=== PATIENT | female | born 1970 | race American Indian/Alaskan Native ===

== ENCOUNTER 2022-04-21 08:15 | Day surgery (SDC) | payer OTHER ==
[2022-04-21] MEDS ORDERED: BUPIVACAINE/PF (0.5%) 5 MG/1 ML 30 ML VIAL INFILTRATI ONE ×2 (09:24→10:05)
[2022-04-21] MEDS ORDERED: LIDOCAINE (1%) 10 MG/1 ML VIAL 20 ML MDV ONE (09:24)
[2022-04-21] MEDS ORDERED: SODIUM CHLORIDE 0.9% IRR 1,500 ML BOTTLE IR ONE (10:05)
[2022-04-21] MEDS ORDERED: LIDOCAINE (1%) 10 MG/1 ML VIAL 20 ML MDV INFILTRATI ONE (10:05)
--- NOTE | 2022-04-21 11:05 | Procedure Note ---
Date of procedure: 04/21/22 Pre-op diagnosis: chronically infected umbilical wound Post-op diagnosis: same Procedure: debridement of umbilical wound Findings: Patient identified in preop area, taken back to the minor procedure room and placed on stretcher in supine position. Umbilical dressing removed and area prepped with betadine. Drape applied. Time out performed. 0.5 cm wound present at the inferior aspect of the umbilicus with purulent drainage. Local anesthetic infiltrated into the skin and subcutaneous tissue. The wound was probed with a hemostat. The wound probed deep approximately 4 cm and towards the 11 oclock and 5 oclock position. The skin was incised over the stat in both directions using an 11 blade in order to unroof abscess cavity. Chronic abscess cavity visualized measuring approximately 3cm and extended to the fascia. Wound probed bluntly with gloved finger and loculations broken up. All pus evacuated. Fascia intact. Fascia and subcutaneous tissue gently debrided with curette under direct visualization. Wound irrigated. Wound bed clean. Hemostasis ensured. Wound packed with one piece of saline moistened fluff gauze. This was covered with dry gauze and tegaderm. Wound measured 3.5 x 1 x 4 cm at the end of the case. The patient tolerated the procedure well. All sharp, instrument, sponge counts were correct x 2 at the end of the case. Patient discharged to home in stable condition. Anesthesia: local Surgeon: RUTH VILLEGAS Estimated blood loss: minimal Pathology: none Condition: stable Disposition: other (Home)
[2022-04-21 12:04] VITALS: BP 128/92
== END 2022-04-21 08:16 | disposition home or self-care (01) ==
LOC: OR 08:15
PROVIDERS: ATTEND Surgery
DX: S31.105A Unspecified open wound of abdominal wall, periumbilic region without penetration into peritoneal cavity, initial encounter (principal); E78.00 Pure hypercholesterolemia, unspecified; I10 Essential (primary) hypertension; Z98.51 Tubal ligation status; Z79.899 Other long term (current) drug therapy; Z98.891 History of uterine scar from previous surgery; Z98.890 Other specified postprocedural states; X58.XXXA Exposure to other specified factors, initial encounter; Y93.89 Activity, other specified; Y92.89 Other specified places as the place of occurrence of the external cause; Y99.8 Other external cause status
CPT/HCPCS: 11042; J3490